=== PATIENT | female | born 1995 | race Asian ===

== ENCOUNTER 2016-12-09 11:22 | Inpatient (IN) | payer OTHER ==
[2016-12-09 12:06] LABS: Hematocrit 41 % (35-47); Hemoglobin 13.7 g/dl (12.0-16.0); Mean Corpuscular HGB Conc 34 g/dl (31-36); Mean Corpuscular Hemoglobin 31 pg (27-31); Mean Corpuscular Volume 93 fL (80-97); Mean Platelet Volume 9 um3 (7.4-10.4); Red Blood Count 4.39 10^6/ul (4.0-5.4); Red Cell Distribution Width 13 % (10.5-15); White Blood Count 9.5 10^3/ul (3.5-10.8)
[2016-12-09 12:11] LABS: Urine Bacteria Absent (Absent); Urine Bilirubin Negative (Negative); Urine Glucose Negative (Negative); Urine Nitrite Negative (Negative)
[2016-12-09 12:31] LABS: ALT 19 U/L (7-52); AST 18 U/L (13-39); Albumin 4.9 g/dL (3.2-5.2); Alkaline Phosphatase 69 U/L (34-104); Anion Gap 10 mmol/L (2-11); Blood Urea Nitrogen 10 mg/dL (6-24); CO2 Carbon Dioxide 23 mmol/L (22-32); Calcium 9.8 mg/dL (8.6-10.3); Chloride 104 mmol/L (101-111); EGFR African American 122.9 (>60); EGFR Non-African American 95.6 (>60); Globulin 3.2 g/dL (2-4); Glucose 97 mg/dL (70-100); Potassium 3.7 mmol/L (3.5-5.0); Sodium 137 mmol/L (133-145); Total Protein 8.1 g/dL (6.4-8.9)
[2016-12-09 12:46] LABS: Acetaminophen < 15 mcg/mL; Alcohol < 10 mg/dL (<10); Salicylate < 2.50 mg/dL (<30)
[2016-12-09 12:54] LABS: Benzodiazepine Urine Screen None Detected (None Detect)
[2016-12-09 12:55] LABS: TSH (Thyroid Stimulating Horm) 1.74 mcIU/mL (0.34-5.60)
[2016-12-09] MEDS ORDERED: Sulfamethox/Trimethoprim DS 800/160* TAB PO ONE (13:11)
--- NOTE | 2016-12-09 13:16 | ED ---
Psychiatric Complaint - HPI Summary HPI Summary: Patient arrives to ED with CC of depression and anxiety x 1 year. She denies any medication use, previous psych diagnoses or treatment, drugs, alcohol or smoking. She is a student at [employer]. The feelings are intermittent and she denies recent stressors other than school. She is otherwise healthy and denies any pain today. Denies self harm, SI/HI. Denies family history of mental health. When prompted, she notes to some frequency with urination but denies abd pain, back pain, N/V/C/D or DORSEY. - History Of Current Complaint Chief Complaint: EDMentalHealth Time Seen by Provider: 12/09/16 11:37 Hx Obtained From: Patient ?: No Onset/Duration: Gradual Onset Timing: Intermittent Episode Lasting Severity Initially: Moderate Severity Currently: Moderate Character: Depressed, Anxious Aggravating Factor(s): Recent Stress Alleviating Factor(s): Nothing Associated Signs And Symptoms: Positive: Social Withdrawal, Social Isolation - Risk Factor(s) Completed Suicide Risk Factors: Negative - Allergies/Home Medications Allergies/Adverse Reactions: Allergies Allergy/AdvReac Type Severity Reaction Status Date / Time No Known Allergies Allergy Verified 12/09/16 13:44 PMH/Surg Hx/FS Hx/Imm Hx Previously Healthy: Yes - Immunization History Hx Pertussis Vaccination: No Immunizations Up to Date: No Infectious Disease History: No Infectious Disease History: Reports: Traveled Outside the [place] in Last 30 Days - [place] - Social History Occupation: Student Lives: Alone Alcohol Use: None Hx Substance Use: No Substance Use Type: Reports: None Smoking Status (MU): Never Smoked Tobacco Do You Chew or Dip Tobacco: No Have You Chewed or Dipped Tobacco in the LAST YEAR: No Review of Systems Constitutional: Negative Eyes: Negative Cardiovascular: Negative Respiratory: Negative Gastrointestinal: Negative Positive: see HPI, frequency Musculoskeletal: Negative Skin: Negative Neurological: Negative Positive: Anxious, Depressed All Other Systems Reviewed And Are Negative: Yes Physical Exam Triage Information Reviewed: Yes Vital Signs On Initial Exam: Initial Vitals Temp Pulse Resp BP Pulse Ox 98.7 F 89 20 129/72 99 12/09/16 11:36 12/09/16 11:36 12/09/16 11:36 12/09/16 11:36 12/09/16 11:36 Vital Signs Reviewed: Yes Appearance: Positive: Well-Appearing, No Pain Distress, Well-Nourished Skin: Positive: Warm, Skin Color Reflects Adequate Perfusion Head/Face: Positive: Normal Head/Face Inspection Eyes: Positive: EOMI, CIRO, Conjunctiva Clear Neck: Positive: Supple, No Lymphadenopathy Respiratory/Lung Sounds: Positive: Clear to Auscultation, Breath Sounds Present Cardiovascular: Positive: Normal, Pulses are Symmetrical in both Upper and Lower Extremities Bowel Sounds: Positive: Present Musculoskeletal: Positive: Normal, Strength/ROM Intact Neurological: Positive: Sensory/Motor Intact, Alert, Oriented to Person Place, Time, Speech Normal Psychiatric: Positive: Normal AVPU Assessment: Alert - [place] Coma Scale Best Eye Response: 4 - Spontaneous Best Motor Response: 6 - Obeys Commands Best Verbal Response: 5 - Oriented Coma Scale Total: 15 Diagnostics - Vital Signs Vital Signs Temp Pulse Resp BP Pulse Ox 12/09/16 11:36 98.7 F 89 20 129/72 99 - Laboratory Lab Results: Lab Results 12/09/16 12/09/16 12/09/16 Range/Units 11:49 11:49 11:55 WBC 9.5 (3.5-10.8) 10^3/ul RBC 4.39 (4.0-5.4) 10^6/ul Hgb 13.7 (12.0-16.0) g/dl Hct 41 (35-47) % MCV 93 (80-97) fL MCH 31 (27-31) pg MCHC 34 (31-36) g/dl RDW 13 (10.5-15) % Plt Count 267 (150-450) 10^3/ul MPV 9 (7.4-10.4) um3 Neut % (Auto) 74.9 (38-83) % Lymph % (Auto) 19.1 L (25-47) % [place] % (Auto) 4.6 (1-9) % Eos % (Auto) 0.3 (0-6) % Baso % (Auto) 1.1 (0-2) % Absolute Neuts (auto) 7.1 (1.5-7.7) 10^3/ul Absolute Lymphs (auto) 1.8 (1.0-4.8) 10^3/ul Absolute Monos (auto) 0.4 (0-0.8) 10^3/ul Absolute Eos (auto) 0 (0-0.6) 10^3/ul Absolute Basos (auto) 0.1 (0-0.2) 10^3/ul Absolute Nucleated RBC 0 10^3/ul Nucleated RBC % 0 Sodium (133-145) mmol/L Potassium (3.5-5.0) mmol/L Chloride (101-111) mmol/L Carbon Dioxide (22-32) mmol/L Anion Gap (2-11) mmol/L BUN (6-24) mg/dL Creatinine (0.51-0.95) mg/dL Est GFR ( Amer) (>60) Est GFR (Non-Af Amer) (>60) BUN/Creatinine Ratio (8-20) Glucose (70-100) mg/dL Calcium (8.6-10.3) mg/dL Total Bilirubin (0.2-1.0) mg/dL AST (13-39) U/L ALT (7-52) U/L Alkaline Phosphatase (34-104) U/L Total Protein (6.4-8.9) g/dL Albumin (3.2-5.2) g/dL Globulin (2-4) g/dL Albumin/Globulin Ratio (1-3) TSH (0.34-5.60) mcIU/mL Urine Color Yellow Urine Appearance Clear Urine pH 7.0 (5-9) Ur Specific [place] 1.024 (1.010-1.030) Urine Protein Negative (Negative) Urine Ketones 1+ H (Negative) Urine Blood Negative (Negative) Urine Nitrate Negative (Negative) Urine Bilirubin Negative (Negative) Urine Urobilinogen Negative (Negative) Ur Leukocyte Esterase 2+ H (Negative) Urine WBC (Auto) 2+(11-20/hpf) H (Absent) Urine RBC (Auto) Absent (Absent) Ur Squamous Epith Cells Present H (Absent) Urine Bacteria Absent (Absent) Urine Glucose Negative (Negative) Salicylates (<30) mg/dL Urine Opiates Screen None detected (None Detect) Acetaminophen mcg/mL Ur Barbiturates Screen None detected (None Detect) Ur Phencyclidine Scrn None detected (None Detect) Ur Amphetamines Screen None detected (None Detect) U Benzodiazepines Scrn None detected (None Detect) Urine Cocaine Screen None detected (None Detect) U Cannabinoids Screen None detected (None Detect) Serum Alcohol (<10) mg/dL 05/01/17 Range/Units 11:55 WBC (3.5-10.8) 10^3/ul RBC (4.0-5.4) 10^6/ul Hgb (12.0-16.0) g/dl Hct (35-47) % MCV (80-97) fL MCH (27-31) pg MCHC (31-36) g/dl RDW (10.5-15) % Plt Count (150-450) 10^3/ul MPV (7.4-10.4) um3 Neut % (Auto) (38-83) % Lymph % (Auto) (25-47) % [place] % (Auto) (1-9) % Eos % (Auto) (0-6) % Baso % (Auto) (0-2) % Absolute Neuts (auto) (1.5-7.7) 10^3/ul Absolute Lymphs (auto) (1.0-4.8) 10^3/ul Absolute Monos (auto) (0-0.8) 10^3/ul Absolute Eos (auto) (0-0.6) 10^3/ul Absolute Basos (auto) (0-0.2) 10^3/ul Absolute Nucleated RBC 10^3/ul Nucleated RBC % Sodium 137 (133-145) mmol/L Potassium 3.7 (3.5-5.0) mmol/L Chloride 104 (101-111) mmol/L Carbon Dioxide 23 (22-32) mmol/L Anion Gap 10 (2-11) mmol/L BUN 10 (6-24) mg/dL Creatinine 0.77 (0.51-0.95) mg/dL Est GFR ( Amer) 122.9 (>60) Est GFR (Non-Af Amer) 95.6 (>60) BUN/Creatinine Ratio 13.0 (8-20) Glucose 97 (70-100) mg/dL Calcium 9.8 (8.6-10.3) mg/dL Total Bilirubin 0.90 (0.2-1.0) mg/dL AST 18 (13-39) U/L ALT 19 (7-52) U/L Alkaline Phosphatase 69 (34-104) U/L Total Protein 8.1 (6.4-8.9) g/dL Albumin 4.9 (3.2-5.2) g/dL Globulin 3.2 (2-4) g/dL Albumin/Globulin Ratio 1.5 (1-3) TSH 1.74 (0.34-5.60) mcIU/mL Urine Color Urine Appearance Urine pH (5-9) Ur Specific [place] (1.010-1.030) Urine Protein (Negative) Urine Ketones (Negative) Urine Blood (Negative) Urine Nitrate (Negative) Urine Bilirubin (Negative) Urine Urobilinogen (Negative) Ur Leukocyte Esterase (Negative) Urine WBC (Auto) (Absent) Urine RBC (Auto) (Absent) Ur Squamous Epith Cells (Absent) Urine Bacteria (Absent) Urine Glucose (Negative) Salicylates < 2.50 (<30) mg/dL Urine Opiates Screen (None Detect) Acetaminophen < 15 mcg/mL Ur Barbiturates Screen (None Detect) Ur Phencyclidine Scrn (None Detect) Ur Amphetamines Screen (None Detect) U Benzodiazepines Scrn (None Detect) Urine Cocaine Screen (None Detect) U Cannabinoids Screen (None Detect) Serum Alcohol < 10 (<10) mg/dL Result Diagrams: 12/09/16 11:55 12/09/16 11:55 Lab Statement: Any lab studies that have been ordered have been reviewed, and results considered in the medical decision making process. Course/Dx - Course Course Of Treatment: Patient given Bactrim in ED. Cleared for MHU. Denies SI/ HI or self harm. No previous issues with psych history. - Differential Dx/Clinical Impression Provider Diagnosis: History of depression Discharge - Discharge Plan Condition: Stable Disposition: ADMITTED TO [facility]
[2016-12-09] MEDS ORDERED: Mouth Piece, Nicotine* 1 EACH CARTRIDGE INH PRN (14:57)
[2016-12-09] MEDS ORDERED: Nicotine Inhaler* 10 MG AMP INH PRN (14:57)
[2016-12-10] MEDS ORDERED: Al Hydrox/Mg Hydrox/Simet LIQ* 30 ML UDC PO PRN (04:51)
[2016-12-10] MEDS ORDERED: Acetaminophen TAB* 325 MG PO PRN (04:51)
[2016-12-10] MEDS: Sulfamethox/Trimethoprim DS 800/160* TAB PO SCH ×3 (07:33→21:59)
[2016-12-10] MEDS: Vitamin THERAPEUTIC TAB PO SCH (09:35)
--- NOTE | 2016-12-10 11:23 | PN ---
MHU: Group Therapy Note - Service Type Service Type: [id number] Group Psychotherapy - Cognitive Behavioral Group Therapy ( CBT):Patient was attentive and participatory in CBT programming this morning, and remained in good behavioral control. Patient expressed positive insights regarding relevant treatment interventions and goals.
--- NOTE | 2016-12-10 15:45 | HP ---
PSYCHIATRIC HISTORY AND PHYSICAL: DATE OF ADMISSION: 12/09/16 JUSTIFICATION FOR ADMISSION: The patient is in need of 24-hour supervision and treatment secondary to suicidal ideations without plan. CHIEF COMPLAINT: "I learned a lot about my problem just being here and away from it." HISTORY: The patient is a 21-year-old single homosexual Yakut female who is undergraduate at [employer], who was sent by the [facility] at [place] after presenting with suicidal ideations without plan. The patient indicates that approximately 3 days ago, she broke up with her girlfriend of several months and since then she has not been eating and not been able to sleep. She actually called the [facility] from her dorm room, stating, "I just need to talk to someone." They sent a residential affairs medical receptionist medical assistant to her room, who then escorted her to the mental health clinic. There she endorsed suicidal thoughts, which were somewhat vague and without plan and she could not contract for safety resulting in her being sent to the emergency room on a 9.41. The patient indicates that she has been dating her female friend who is a senior at the high school that the patient attended. They have been going together since the fall, but they had been friends for several years prior to this. The patient indicates that this was the only person who she felt supported her sexual and gender identity issues. Apparently a year ago in August 2015, she revealed to her parents, who are very conservative [place] and still reside in [place], that she was transgender and that she felt like a male. Her parents were very unsupportive of this. They actually told her that they wished they had physically punished her when she was younger in order to make her more feminine. They stated to her that they regretted not making her do more feminine things as she was growing up. The patient now denies neurovegetative symptoms; however, she feels that she has no future, no motivation, and "wants to disappear." PAST PSYCHIATRIC HISTORY: Apparently, she has had depression in the past and she sees a psychiatrist in [place] for at least a year. She saw him in person over the summer leading up to coming to [place], but has continued to see him over Skype. He prescribed her some type of medication, which she states has a Yakut name and she is uncertain whether this medication is available in the [place]. At any rate, she self-discontinued this approximately 1 month ago. She has not received any mental health treatment here in the [place]. She has no history of violence towards others. No history of traumatic brain injury. No history of abuse, neglect or trauma. MEDICAL HISTORY: Noncontributory. MEDICATIONS: She is not on any current medications. ALLERGIES: She has no known drug allergies. SUBSTANCE ABUSE HISTORY: She is a social drinker, but never more than 2 to 3 drinks of alcohol at a time. She does smoke e-cigarettes daily and has requested and received a nicotine patch for this. She has no history of illicit substance abuse. FAMILY HISTORY: Noncontributory. SOCIAL HISTORY: The patient was born and raised to an intact family. She has 1 twin brother who apparently has some developmental delays, but no other siblings. Apparently, the patient has been in the [facility] since the age of 13. She apparently moved in with one of her father's friends in [place] while the rest of her family stayed in [place]. Initially, she went to a middle school in [place], but then transferred to a boarding school in [place] where she completed her high school education. She self- identifies as homosexual and has been dating females. She feels that her true gender identity should be male. Currently, she is unemployed, being a full-time student and is financially supported by her parents. She is not buddhism or spiritual. She has no history of sexually transmitted diseases and she has no formal legal history. REVIEW OF SYSTEMS: The patient denies headache, double vision, difficulty breathing, sore throat, cough, chest pain, abdominal pain, nausea, vomiting, diarrhea, constipation. She denies difficulty ambulating, rashes, lymph nodes, changes in weight or fevers. PHYSICAL EXAMINATION VITAL SIGNS: Blood pressure is 124/73, heart rate 77, respiratory rate 16, temperature is 97.0 degrees Fahrenheit, oxygen saturations are 100% on room air. HEAD: Normocephalic, atraumatic. NECK: Supple. CHEST: Clear to auscultation bilaterally. CARDIAC EXAM: Reveals normal heart sounds. ABDOMEN: Soft and nontender. SKIN: Warm and dry. MUSCULOSKELETAL EXAM: Reveals no sign of edema. NEUROLOGICALLY: She is grossly intact with no focal deficits. DIAGNOSTIC STUDIES/LAB DATA: Her complete metabolic panel and complete blood counts were within normal limits. Urinalysis was significant only for slightly elevated white blood cells and leukocyte esterase. Her urine drug screen was negative for all substances tested including alcohol. MENTAL STATUS EXAM: The patient is a young Yakut female with a very masculine appearance, including short haircut and a black hoodie sweatshirt, who is clean and well groomed. She makes good eye contact and is easy to establish a rapport with. Speech has a normal rate, tone, and volume. Mood is dysthymic with a constricted tearful affect. Thought process is linear and goal directed. Thought content is significant for her feeling unsupported in her sexual orientation and gender identity roles. She does endorse passive suicidal ideations, but denies homicidality. She denies auditory or visual hallucinations. Insight and judgment are fair given her willingness to come in for treatment. Cognitively she is awake and alert with what would appear to be an average intellect. DIAGNOSES: As follows: [place] I: Adjustment disorder with depressed mood. [place] II: Deferred. [place] III: None. [place] IV: Severe primary support stressors. [place] V: Currently 35. IMPRESSION: The patient is a 21-year-old homosexual single [place] female with a history of depression, who was sent by the [facility] where she presented with passive suicidal ideations, who continues to be unable to contract for safety. She denies neurovegetative symptoms of depression, but is extremely stressed by the recent ending of a close relationship as well as the lack of support that she is receiving from her conservative [place] parents [place]. PLAN: The patient is admitted to the adult behavioral health unit where she is placed on q. 30 minute checks for her own safety. I do not believe that a trial of antidepressant medication is warranted at this time, but I think she would do well with more conservative approach, including milieu therapies on both individual and group levels. She needs to be more connected with the local LGBT Community, and we discussed that some. She also needs to be hooked up with outpatient services at [place]. [id number]/[facility] #: [id number] JENNI
[2016-12-11 07:41] VITALS: BP 123/67
[2016-12-11] MEDS: Sulfamethox/Trimethoprim DS 800/160* TAB PO SCH (08:27)
[2016-12-11] MEDS: Vitamin THERAPEUTIC TAB PO SCH (08:27)
--- NOTE | 2016-12-11 11:41 | PN ---
MHU: Group Therapy Note - Service Type Service Type: [id number] Group Psychotherapy - Cognitive Behavioral Group Therapy ( CBT):Patient was attentive and participatory in CBT programming this morning, and remained in good behavioral control. Patient expressed positive insights regarding relevant treatment interventions and goals.
--- NOTE | 2016-12-11 15:20 | DS ---
DISCHARGE SUMMARY: DATE OF ADMISSION: 12/09/16 DATE OF DISCHARGE: 12/11/16 DISCHARGE DIAGNOSES: [place] I: Adjustment disorder with depressed mood. [place] II: Deferred. [place] III: Acute urinary tract infection. [place] IV: Severe primary support stressors. [place] V: At the time of admission was 35 and at the time of discharge is 60. CONDITION AT THE TIME OF DISCHARGE: Improved. The patient's affect is more full. She is euthymic. She has been fully participatory in all milieu activities including group and individual psychother apies. The patient feels much more future oriented, looking forward to returning to school at [employer] and finishing her freshman year; thereafter, her plan is to return to her [place] and follow up with her psychiatrist in [place]. The chief stressor leading to this hospitalization was a breaku p with her girlfriend and also gender identity and sexual orientation issues, which are unaccepted b y her family of origin. We have gotten her hooked up with LGBT services on the [facility] and s he is also going to be following up with [facility] treatment. MENTAL STATUS EXAMINATION AT THE TIME OF DISCHARGE: The patient is a young Armenian female with very masculine appearance, including short haircut and a black hoodie sweatshirt. She was clean and well groomed. She makes good eye contact and is easy to establish a rapport with. Speech has a normal rate, tone and volume. Mood is euthymic with a full affect. Thought process is linear and goal dir ected. Thought content is significant for her desire to leave the hospital and get back to her [employer] responsibilities. She denies suicidal or homicidal ideation. She denies auditory or visual hallu cinations. Insight and judgment are fair given her willingness to follow up with outpatient treatme nt. Cognitively, she is awake and alert with what would appear to be an average intellect. DISCHARGE INSTRUCTIONS TO THE PATIENT: A. Medications: She is taking Bactrim double strength 1 tab let p.o. b.i.d. She is to take this for 5 more days for urinary tract infection and then discontinu e. B. Diet is regular. C. Activities as tolerated. The patient uses a nicotine vaporizer and she is declining the offer of nicotine replacement therapy indicating her intention to continue utilizin g nicotine through a vaporizer after discharge. There are no diagnostic studies pending at the time of discharge. D. Followup care: The patient will follow up on Friday, December 13, at the [facility]. There, she will continue to receive both psychotherapy and if needed psyc hopharmacologic services. It is also the case that she has a psychiatrist in [place] for when she ret urns there within the month. The patient has also been granted a referral to the LGBT support group on the campus of [place] and they are aware of her situation. HOSPITAL COURSE - PART A: Reason for Admission: The patient is a 21-year-old single homosexual Марина hulln female, who is an undergraduate at [employer], who was sent by the [facility] at [place] after presenting with suicidal ideations without plan. The patient indicates that approximately 3 days ago, she broke up with her girlfriend of several months, and since then, she h as not been able to eat or sleep. She actually called the [facility] from her dorm room, stating "I just need to talk to someone." They sent a residential affairs radiology physician assistant to her r oom, who then escorted her to the mental health clinic. There, she endorsed suicidal thoughts, whic h were somewhat vague and without plan, and she could not contract for safety resulting in her being sent to the emergency room on a 9.41 status. The patient indicates that she has been dating her fe male friend, who is a senior at the high school that the patient used to attend. They have been goi ng together since the fall, but they had been friends for several years prior to this. The patient indicates that this was the only person who she felt supported for her sexual and gender identity is andrez. Apparently, a year ago in August 2015, she revealed to her parents, who are very conservative [place] and still reside in [place], that she was transgender and that she felt like a male. Her par ents were very unsupportive of this. They actually told her that they wished that they had physical ly punished her when she was younger in order to make her more feminine. They stated to her that th ey regretted not making her do more feminine things as she was growing up. The patient now denies n eurovegetative symptoms; however, she does feel that she has no future, no motivation and "wants to disappear." HOSPITAL COURSE - PART B: Psychiatric Treatment Rendered: [facility], where she was placed on q.30-minute checks for her own safety. She was evalua jonathon by this clinician on 12/10/16, and it was felt that she met criteria for an adjustment disorder with depressed mood. We did not feel that any medications were warranted and therefore, we stuck with conservative milieu treatment. The patient did very well in the milieu setting. She wa s quite active in groups and she was social with peers. She made several phone calls to friends. W rosette were able to get in touch with a close friend of hers, named Jossie, who is similarly a graduate [employer], who indicated that Bhardwaj was functioning better than prior to admission. In addition, we felt strongly that she needs to be connected with services in the community related to her gender identi ty difficulties; therefore, we contacted the LGBT Support Center on the [place] [facility] [employer] and they were made aware of her situation and she was given followup materials for developing a rel ationship and taking advantage of their services. Furthermore, we were able to get her enrolled in followup treatment at [facility]. It is the case that she is soon return ing to [place], where her parents are quite unsupportive; however, she states that she has a psychiatr ist in [place] whom she had been Skyping with until recently, who she feels comfortable following up w roberto. She also indicate that she has several supportive peers in [place], who are aware of her gender identity issues. At this time, we feel that she is safe to receive treatment in a less restrictive s etting and for this reason, she is being discharged back to school with followup at the [facility]. [id number]/[facility] #: [id number]
== END 2016-12-11 12:10 | disposition home or self-care (01) | DRG 881 ==
LOC: ED 11:22 → BSU 22:31
PROVIDERS: ADMIT Psychiatry & Neurology Psychiatry; ATTEND Psychiatry & Neurology Psychiatry
DX: F43.21 Adjustment disorder with depressed mood (principal); R45.851 Suicidal ideations; N39.0 Urinary tract infection, site not specified; F17.290 Nicotine dependence, other tobacco product, uncomplicated
CPT/HCPCS: 36415; 80053; 80307; 80320; 80329; 81003; 81015; 84443; 85025; 87086; A9270-GY; G0480